=== PATIENT | male | born 1990 | race Hispanic/Latino ===

== ENCOUNTER 2023-03-27 06:57 | Inpatient (IN) | payer OTHER ==
[2023-03-27 08:01] LABS: #Eosinphils 0.1 10x3/uL (0.0-0.5); #Monocytes 0.4 10x3/uL (0.0-1.1); #Neutrophils 6.2 10x3/uL (1.5-8.4); %Basophils 0.4 % (0.0-2.0); %Eosinophils 1.3 % (0.0-6.0); %Lymphocytes 13.6 % (18.0-47.0); %Monocytes 5.5 % (0.0-10.0); %Neutrophils 78.8 % (40.0-75.0); Hematocrit 45.1 % (38.8-50.0); Hemoglobin 15.9 g/dL (13.5-17.5); Mean Corpuscular HGB CONC 35.3 g/dL (32.0-36.0); Mean Corpuscular Hemoglobin 29.8 pg (27.0-33.0); Mean Corpuscular Volume 84.6 fl (81.2-95.1); Mean Platelet Volume 9.1 fl (7.4-10.4); Platelet Count 222 10x3/uL (150-450); RBC Distribution Width 13.2 % (11.5-14.5); Red Blood Cell (RBC) Count 5.33 10x6/uL (4.32-5.72); White Blood Cell (WBC) Count 7.8 10x3/uL (3.5-10.5)
[2023-03-27 08:16] LABS: Amphetamine Not Detected (NotDetected); Barbiturates Screen Not Detected (NotDetected); Benzodiazepine Screen Not Detected (NotDetected); Cocaine Metabolite Screen Not Detected (NotDetected); Methadone Not Detected (NotDetected); Methamphetamine Not Detected (NotDetected); Opiate Screen Not Detected (NotDetected); Oxycodone Screen Not Detected (NotDetected); Phencyclidine (PCP) Not Detected (NotDetected); THC/Cannabinoid Screen Not Detected (NotDetected); Tricyclic Screen Not Detected (NotDetected)
[2023-03-27 08:20] LABS: Acetaminophen Less than 10 mcg/mL (10.0-30.0); Alcohol Less than 10.0 mg/dL (Less than 10); Lipase 37 U/L (8-78); Magnesium 2.1 mg/dL (1.6-2.6); Salicylate Less than 8.0 mg/dL (15.0-30.0)
[2023-03-27 08:22] LABS: ALT (SGPT) 1078 U/L (8-55); AST (SGOT) 452 U/L (5-34); Albumin 4.2 g/dL (3.5-5.0); Alkaline Phosphatase 240 U/L (40-110); Anion Gap 16 mmol/L (10-20); BUN (Urea Nitrogen) 5 mg/dL (8.9-20.6); Bilirubin, Total 6.5 mg/dL (0.2-1.2); Calc. Creatinine Clearance 0 mL/min (70-130); Calcium 8.8 mg/dL (7.8-10.44); Carbon Dioxide 22 mmol/L (22-29); Chloride 104 mmol/L (98-107); Estimated GFR 124; Globulin 2.7 g/dL (2.4-3.5); Glucose 107 mg/dL (70-105); Potassium 3.4 mmol/L (3.5-5.1); Protein, Total 6.9 g/dL (6.0-8.3); Sodium 139 mmol/L (136-145)
[2023-03-27] MEDS ORDERED: Ondansetron PF 4 MG/2 ML Vial ONE (08:30)
[2023-03-27] MEDS ORDERED: Morphine 4 MG/ML VIAL ONE (08:30)
[2023-03-27 09:29] LABS: Bilirubin Neg (Negative); Blood, Urine Negative (Negative); Clarity Clear (Clear); Glucose, Urine (Dipstick) Normal (Negative); Ketone, Urine 5 mg/dL (Negative); Leukocyte Negative (Negative); Nitrite Negative (Negative); Protein, Urine (Dipstick) 30 mg/dl (Neg-Trace); Specific Gravity, Urine 1.005 (1.005-1.030); Urobilinogen Normal mg/dL (Less than 2)
[2023-03-27 09:47] LABS: Bacteria/HPF None Seen HPF (None Seen); CAUTI Indications for Culture Dysuria,urgency,freq; RBC/HPF None Seen HPF (0-3); WBC/HPF None Seen HPF (0-3)
[2023-03-27 09:48] LABS: Squamous Epithelial None Seen HPF (0-3)
[2023-03-27 09:49] LABS: Urine Culture Reflex No No
[2023-03-27 10:43] LABS: SARS-CoV-2 NAA Rapid Test Not Detected (NotDetected)
[2023-03-27] MEDS ORDERED: Acetaminophen 325 MG TAB PO PRN (16:34)
[2023-03-27] MEDS ORDERED: Enoxaparin 40 MG (0.4 mL) SYRINGE SC SCH (16:45)
[2023-03-27] MEDS ORDERED: Morphine 2 MG/ML VIAL ONE (22:12)
[2023-03-27] MEDS: Ciprofloxacin Lactate/D5W 400 MG in Premix 1 BAG IVPB SCH (23:06)
[2023-03-27] MEDS ORDERED: metroNIDAZOLE 500 MG (100 mL) BAG ONE (23:59)
[2023-03-28] MEDS: metroNIDAZOLE 500 MG in Premix 1 BAG IVPB SCH ×4 (00:22→21:08)
[2023-03-28] MEDS: Sodium Chloride 0.9% 1,000 ML IV SCH ×3 (00:22→16:13)
[2023-03-28 06:55] LABS: ALT (SGPT) 792 U/L (8-55); AST (SGOT) 181 U/L (5-34); Albumin 3.8 g/dL (3.5-5.0); Alkaline Phosphatase 240 U/L (40-110); Anion Gap 13 mmol/L (10-20); BUN (Urea Nitrogen) 8 mg/dL (8.9-20.6); Bilirubin, Total 5.2 mg/dL (0.2-1.2); Calc. Creatinine Clearance 0 mL/min (70-130); Calcium 8.4 mg/dL (7.8-10.44); Carbon Dioxide 24 mmol/L (22-29); Chloride 106 mmol/L (98-107); Estimated GFR 122; Globulin 2.6 g/dL (2.4-3.5); Glucose 71 mg/dL (70-105); Potassium 3.2 mmol/L (3.5-5.1); Protein, Total 6.4 g/dL (6.0-8.3); Sodium 140 mmol/L (136-145)
[2023-03-28 07:06] LABS: #Basophils 0.1 10x3/uL (0.0-0.2); #Eosinphils 0.2 10x3/uL (0.0-0.5); #Monocytes 0.5 10x3/uL (0.0-1.1); #Neutrophils 4.5 10x3/uL (1.5-8.4); %Basophils 0.7 % (0.0-2.0); %Eosinophils 2.3 % (0.0-6.0); %Lymphocytes 26.1 % (18.0-47.0); %Monocytes 6.5 % (0.0-10.0); %Neutrophils 64.3 % (40.0-75.0); Hematocrit 44.4 % (38.8-50.0); Hemoglobin 15.3 g/dL (13.5-17.5); Mean Corpuscular HGB CONC 34.5 g/dL (32.0-36.0); Mean Corpuscular Hemoglobin 29.8 pg (27.0-33.0); Mean Corpuscular Volume 86.4 fl (81.2-95.1); Mean Platelet Volume 9.3 fl (7.4-10.4); Platelet Count 211 10x3/uL (150-450); RBC Distribution Width 13.3 % (11.5-14.5); Red Blood Cell (RBC) Count 5.14 10x6/uL (4.32-5.72); White Blood Cell (WBC) Count 7.1 10x3/uL (3.5-10.5)
[2023-03-28] MEDS ORDERED: Iopamidol 30 ML ONE (07:16)
[2023-03-28] MEDS ORDERED: Indomethacin 50 MG SUPP ONE (07:17)
[2023-03-28] MEDS ORDERED: SUGAMMADEX SODIUM 200 MG/2 ML VIAL ONE (07:36)
[2023-03-28] MEDS ORDERED: PROPOFOL 20 ML ONE (07:42)
[2023-03-28] MEDS ORDERED: fentaNYL 50 mcg/mL 1 mL Vial ONE ×2 (07:45)
[2023-03-28] MEDS ORDERED: Dexamethasone 4 mg/ml Vial ONE (08:52)
[2023-03-28] MEDS ORDERED: Rocuronium Bromide 10 MG/ML (10ML VIAL) ONE (08:52)
[2023-03-28] MEDS ORDERED: Ondansetron PF 4 MG/2 ML Vial ONE (08:52)
[2023-03-28 12:39] VITALS: BMI 38.1
[2023-03-28] MEDS ORDERED: FLU VACC QS2023-24(6MOS UP)/PF 60 MCG/0.5 ML SYRINGE IM ONE (12:45)
[2023-03-28] MEDS: Morphine 2 MG/ML VIAL SLOW IVP PRN (13:13)
[2023-03-28] MEDS: Ciprofloxacin Lactate/D5W 400 MG in Premix 1 BAG IVPB SCH ×2 (13:15→22:30)
[2023-03-28] MEDS ORDERED: Potassium Chloride 20 MEQ TAB PO SCH (14:00)
[2023-03-28 14:39] LABS: HBCM Index 0.07 S/CO (0-0.79); HBSAg Index 0.22 S/CO (0-0.99); Hep A IgM AB Non-Reactive S/CO (NonReactive); Hep A IgM S/CO 0.13 S/CO (0-0.79); Hep B Surf Ag Non-Reactive S/CO (NonReactive); Hep C IgG Ab Non-Reactive S/CO (NonReactive); Hep C Index 0.04 S/CO (0-0.79); Hepatitis B Core IgM Abs Non-Reactive S/CO (NonReactive)
[2023-03-28] MEDS: Ondansetron PF 4 MG/2 ML Vial IVP PRN (17:36)
[2023-03-29] MEDS: Ondansetron PF 4 MG/2 ML Vial IVP PRN (00:31)
[2023-03-29] MEDS: Morphine 2 MG/ML VIAL SLOW IVP PRN (00:31)
[2023-03-29 05:18] LABS: #Eosinphils 0.1 10x3/uL (0.0-0.5); #Monocytes 0.7 10x3/uL (0.0-1.1); %Basophils 0.2 % (0.0-2.0); %Eosinophils 0.6 % (0.0-6.0); %Lymphocytes 18.1 % (18.0-47.0); %Monocytes 6.9 % (0.0-10.0); %Neutrophils 73.8 % (40.0-75.0); Hematocrit 41.1 % (38.8-50.0); Hemoglobin 14.7 g/dL (13.5-17.5); Mean Corpuscular HGB CONC 35.8 g/dL (32.0-36.0); Mean Corpuscular Hemoglobin 30.7 pg (27.0-33.0); Mean Corpuscular Volume 85.8 fl (81.2-95.1); Mean Platelet Volume 9.3 fl (7.4-10.4); Platelet Count 199 10x3/uL (150-450); RBC Distribution Width 13.2 % (11.5-14.5); Red Blood Cell (RBC) Count 4.79 10x6/uL (4.32-5.72); White Blood Cell (WBC) Count 10.8 10x3/uL (3.5-10.5)
[2023-03-29 05:36] LABS: ALT (SGPT) 769 U/L (8-55); AST (SGOT) 282 U/L (5-34); Albumin 3.5 g/dL (3.5-5.0); Alkaline Phosphatase 261 U/L (40-110); Anion Gap 15 mmol/L (10-20); BUN (Urea Nitrogen) 9 mg/dL (8.9-20.6); Bilirubin, Total 6.6 mg/dL (0.2-1.2); Calc. Creatinine Clearance 185 mL/min (70-130); Calcium 8.3 mg/dL (7.8-10.44); Carbon Dioxide 21 mmol/L (22-29); Chloride 108 mmol/L (98-107); Estimated GFR 124; Globulin 2.4 g/dL (2.4-3.5); Glucose 90 mg/dL (70-105); Potassium 3.6 mmol/L (3.5-5.1); Protein, Total 5.9 g/dL (6.0-8.3); Sodium 140 mmol/L (136-145)
[2023-03-29] MEDS: metroNIDAZOLE 500 MG in Premix 1 BAG IVPB SCH ×3 (06:11→22:01)
[2023-03-29] MEDS: Sodium Chloride 0.9% 1,000 ML IV SCH ×3 (06:11→14:56)
[2023-03-29] MEDS ORDERED: EPINEPHrine 1 MG/ML VIAL ONE (07:54)
[2023-03-29] MEDS ORDERED: Iopamidol 45 ML ONE (07:54)
[2023-03-29] MEDS ORDERED: Bupivacaine PF 0.5% 30 ML VIAL ONE (07:54)
[2023-03-29] MEDS ORDERED: Glucagon 1 MG/ML KIT ONE (07:54)
[2023-03-29] MEDS: Ciprofloxacin Lactate/D5W 400 MG in Premix 1 BAG IVPB SCH ×2 (08:19→21:40)
[2023-03-29] MEDS ORDERED: PROPOFOL 20 ML ONE (08:23)
[2023-03-29] MEDS ORDERED: fentaNYL 50 mcg/mL 1 mL Vial ONE ×4 (08:23→09:51)
[2023-03-29] MEDS ORDERED: Rocuronium Bromide 10 MG/ML (10ML VIAL) ONE (08:27)
[2023-03-29] MEDS ORDERED: Ondansetron PF 4 MG/2 ML Vial ONE (08:27)
[2023-03-29] MEDS ORDERED: Dexamethasone 4 mg/ml Vial ONE (08:27)
[2023-03-29] MEDS ORDERED: Dexmedetomidine 200 MCG/2 ML VIAL ONE (08:36)
[2023-03-29] MEDS ORDERED: ePHEDrine Sulfate 50 MG/10 ML VIAL ONE (08:53)
[2023-03-29] MEDS ORDERED: Sevoflurane 250 ML INH ANEST BOTTLE ONE (09:13)
[2023-03-29] MEDS ORDERED: Ketorolac Tromethamine 30 MG (1 mL) VIAL ONE (09:54)
[2023-03-29] MEDS ORDERED: Glycopyrrolate 0.2 MG/ML 5 ML SYRINGE ONE (09:54)
[2023-03-29] MEDS ORDERED: HYDROcodone/Acetaminophen 5/325 mg Tablet PO PRN (12:03)
[2023-03-30] MEDS: Sodium Chloride 0.9% 1,000 ML IV SCH ×3 (00:12→14:42)
[2023-03-30 04:31] LABS: #Basophils 0.1 10x3/uL (0.0-0.2); #Eosinphils 0.1 10x3/uL (0.0-0.5); #Monocytes 0.6 10x3/uL (0.0-1.1); #Neutrophils 5.9 10x3/uL (1.5-8.4); %Basophils 0.7 % (0.0-2.0); %Eosinophils 1.1 % (0.0-6.0); %Lymphocytes 26.8 % (18.0-47.0); Hematocrit 39.8 % (38.8-50.0); Hemoglobin 13.7 g/dL (13.5-17.5); Mean Corpuscular HGB CONC 34.4 g/dL (32.0-36.0); Mean Corpuscular Hemoglobin 29.7 pg (27.0-33.0); Mean Corpuscular Volume 86.1 fl (81.2-95.1); Mean Platelet Volume 9.3 fl (7.4-10.4); Platelet Count 183 10x3/uL (150-450); RBC Distribution Width 13.9 % (11.5-14.5); Red Blood Cell (RBC) Count 4.62 10x6/uL (4.32-5.72); White Blood Cell (WBC) Count 9.2 10x3/uL (3.5-10.5)
[2023-03-30 04:44] LABS: ALT (SGPT) 652 U/L (8-55); AST (SGOT) 146 U/L (5-34); Albumin 3.4 g/dL (3.5-5.0); Alkaline Phosphatase 232 U/L (40-110); Anion Gap 11 mmol/L (10-20); BUN (Urea Nitrogen) 7 mg/dL (8.9-20.6); Bilirubin, Total 2.1 mg/dL (0.2-1.2); Calc. Creatinine Clearance 176 mL/min (70-130); Carbon Dioxide 23 mmol/L (22-29); Chloride 109 mmol/L (98-107); Estimated GFR 122; Globulin 2.4 g/dL (2.4-3.5); Glucose 88 mg/dL (70-105); Potassium 3.2 mmol/L (3.5-5.1); Protein, Total 5.8 g/dL (6.0-8.3); Sodium 140 mmol/L (136-145)
[2023-03-30] MEDS: metroNIDAZOLE 500 MG in Premix 1 BAG IVPB SCH ×2 (06:27→14:43)
[2023-03-30] MEDS: Ciprofloxacin Lactate/D5W 400 MG in Premix 1 BAG IVPB SCH (10:36)
[2023-03-30] MEDS: Potassium Chloride 20 MEQ TAB PO SCH ×2 (10:37→14:43)
[2023-03-30 16:35] VITALS: BP 120/82; TEMP 98.5
== END 2023-03-30 16:30 | disposition home or self-care (01) | DRG 419 ==
LOC: EEVIPCON 06:57 → CSHERS 06:57 → CSHERHOLD 16:34 → CSHTELE 03-28 12:19
PROVIDERS: ADMIT Internal Medicine; ATTEND Internal Medicine
PROC: 0FC98ZZ Extirpation of Matter from Common Bile Duct, Via Natural or Artificial Opening Endoscopic (ICD-10-PCS; principal; 2023-03-28)
PROC: 0FT44ZZ Resection of Gallbladder, Percutaneous Endoscopic Approach (ICD-10-PCS; 2023-03-29)
PROC: BF131ZZ Fluoroscopy of Gallbladder and Bile Ducts using Low Osmolar Contrast (ICD-10-PCS; 2023-03-29)
DX: K80.10 Calculus of gallbladder with chronic cholecystitis without obstruction (principal); Z79.899 Other long term (current) drug therapy; F32.A Depression, unspecified; Z11.52 Encounter for screening for COVID-19; E87.6 Hypokalemia; F41.9 Anxiety disorder, unspecified; Z90.49 Acquired absence of other specified parts of digestive tract
CPT/HCPCS: 36415; 47532; 74181; 74330; 76705; 80053; 80074; 80306; 80307; 81001; 83690; 83735; 85025; 88304; 96374; 96375; C1725; C1889; J0171; J0744; J1100; J1611; J1885; J2270; J2272; J2405; J2704; J3010; J7050; Q9967; S0020